=== PATIENT | female | born 1955 | race Caucasian/White ===

== ENCOUNTER 2019-06-05 00:13 | Observation (INO) ==
[2019-06-05 01:03] LABS: Basophils % 0.9 %; Eosinophils # 0.1 K/mcL (0.0-0.6); Eosinophils % 2.3 %; Hematocrit 39.6 % (35.3-44.9); Hemoglobin 13.7 g/dL (11.5-15.4); Immature Granulocytes % 0.2 % (0-4); Lymphocytes # 1.8 K/mcL (0.6-4.6); Lymphocytes % 40.2 %; Mean Corpuscular HGB Conc 34.6 g/dL (31.6-35.5); Mean Corpuscular Hemoglobin 30.6 pg (28.0-33.3); Mean Corpuscular Volume 88.6 fL (83.0-100.0); Mean Platelet Volume 9.1 fL (9.4-12.4); Monocytes # 0.4 K/mcL (0.0-1.3); Monocytes % 8.7 %; Neutrophils # 2.1 K/mcL (1.6-8.9); Platelet Count 181 K/mcL (140-400); Red Blood Count 4.47 M/mcL (3.82-4.97); Red Cell Distribution Width 12.6 % (11.5-14.5); Segmented Neutrophils % 47.7 %; White Blood Count 4.4 K/mcL (4.3-11.1)
[2019-06-05 01:08] LABS: Prothrombin Time 11.9 Seconds (9.4-12.1)
[2019-06-05 01:10] LABS: Activated Partial Thrombo Time 30.9 Seconds (26.0-36.0)
[2019-06-05 01:26] LABS: BUN/Creatinine Ratio 18 (6-26); Blood Urea Nitrogen 14 mg/dL (8-23); Calcium 9.7 mg/dL (8.6-10.3); Carbon Dioxide 22 mEq/L (23-29); Chloride 108 mEq/L (98-107); Glucose 102 mg/dL (70-105); Osmolality,Calculated 293 (280-300); Potassium 3.9 mEq/L (3.5-5.1); Sodium 141 mEq/L (136-145); eGFR For African Americans > 60 (> 60); eGFR For Non-African Americans > 60 (> 60)
[2019-06-05 01:27] LABS: Troponin I < 0.03 ng/mL (< 0.04)
[2019-06-05 01:39] LABS: Bilirubin,Urine Negative (Negative); Blood,Urine Negative (Negative); Clarity,Urine Clear (Clear); Color,Urine Yellow (Yellow); Glucose,Urine (UA) Normal (Normal); Ketones,Urine Negative (Negative); Leukocyte Esterase,Urine Negative (Negative); Nitrite,Urine Negative (Negative); PH,Urine 5.5 pH Units (5.0-8.0); Protein,Urine Negative (Neg-Trace); Specific Gravity,Urine 1.016 (1.010-1.025); Urobilinogen,Urine Normal (Normal)
[2019-06-05] MEDS ORDERED: Naloxone 0.4 MG/ML INJ IVP PRN (04:21)
[2019-06-05] MEDS ORDERED: Acetaminophen 325 MG TABLET PO PRN (05:29)
[2019-06-05] MEDS ORDERED: *HR* Heparin 5,000 UNIT/ML VIAL SQ SCH (06:00)
[2019-06-05 07:43] LABS: Chol/HDL Ratio 4.5 (0-4.9); Phosphorous 4.1 mg/dL (2.7-4.5)
[2019-06-05] MEDS ORDERED: Ibuprofen 600 MG TABLET PO PRN (08:03)
[2019-06-05] MEDS ORDERED: Venlafaxine XR (24 HR) 37.5 MG CAP.ER.24H PO SCH (09:00)
[2019-06-05] MEDS ORDERED: NUVIGIL 150 MG PO SCH (09:00)
[2019-06-05] MEDS ORDERED: Metoprolol XL (24 HR) Succ 50 MG TAB.ER.24H PO SCH (09:00)
[2019-06-05 11:45] VITALS: BP 111/72
[2019-06-05] MEDS ORDERED: Lithium Oral Soln 300 MG/5 ML (8 mEq/5mL) UDC PO SCH (21:00)
[2019-06-06 09:35] LABS: Estimated Average Glucose 114 mg/dl
== END 2019-06-05 16:11 | disposition home or self-care (01) ==
LOC: 3BNU 00:13 → EMEROOARM 00:13 → 3BNU 03:00
PROVIDERS: ADMIT Family Medicine; ATTEND Family Medicine